=== PATIENT | male | born 1950 | race Caucasian/White ===

== ENCOUNTER 2018-06-13 11:20 | Outpatient (CLI) | payer MEDICARE, OTHER | END 2018-06-13 11:21 | disposition home or self-care (01) | LOC: LAB 11:20 | PROVIDERS: ATTEND Urology | DX: Z85.46 Personal history of malignant neoplasm of prostate (principal) | CPT/HCPCS: 36415; 84153 ==

== ENCOUNTER 2018-07-20 19:13 | Emergency (ER) | payer MEDICARE ==
[2018-07-20 19:34] LABS: BILIRUBIN,URINE NEGATIVE (NEGATIVE); GLUCOSE, URINE (UA) NEGATIVE (NEGATIVE); KETONES,URINE (UA) NEGATIVE (NEGATIVE); LEUKOCYTE ESTERASE, URINE NEGATIVE (NEGATIVE); NITRITE,URINE NEGATIVE (NEGATIVE); OCCULT BLOOD,URINE NEGATIVE (NEGATIVE); PROTEIN,URINE NEGATIVE (NEGATIVE); UROBILINOGEN,URINE 0.2 (NORMAL) E.U./dL (NORMAL)
[2018-07-20 19:42] LABS: CLARITY,URINE CLEAR (CLEAR)
[2018-07-20 20:00] LABS: EOSINOPHILS % (AUTO) 0.3 %; HGB - HEMOGLOBIN 16.1 g/dL (14.0-18.0); LYMPHOCYTES # (AUTO) 0.7 10^3/uL (1.5-3.5); LYMPHOCYTES % (AUTO) 15.2 %; MEAN CORPUSCULAR VOLUME 94.2 fL (80.0-94.0); MEAN PLATELET VOLUME 7.7 fL (7.4-11.4); MONOCYTES # (AUTO) 0.6 10^3/uL (0.0-1.0); MONOCYTES % (AUTO) 12.4 %; NEUTROPHILS # (AUTO) 3.4 10^3/uL (1.5-6.6); NEUTROPHILS % (AUTO) 71.1 %; PLT - PLATELET COUNT 152 10^3/uL (130-450); RED BLOOD COUNT 5.02 10^6/uL (4.70-6.10); RED CELL DISTRIBUTION WIDTH 13.8 % (12.0-15.0); WHITE BLOOD COUNT 4.8 x10^3/uL (4.8-10.8)
[2018-07-20 20:13] LABS: ALBUMIN 3.9 g/dL (3.2-5.5); ALBUMIN/GLOBULIN RATIO 1.4 (1.0-2.2); BILIRUBIN,TOTAL 0.7 mg/dL (0.2-1.0); CALCIUM 8.6 mg/dL (8.5-10.3); CREATININE 0.9 mg/dL (0.6-1.2); TOTAL PROTEIN 6.7 g/dL (6.7-8.2)
[2018-07-20] MEDS ORDERED: POTASSIUM BICARB 25 MEQ TABLET PO STA (20:20)
--- NOTE | 2018-07-20 20:23 | ED Physician Documentation ---
PD HPI BACK PAIN - Stated complaint Stated Complaint: POSS KIDNEY INF - Chief complaint Chief Complaint: Abd Pain - History obtained from History obtained from: Patient, Family - History of Present Illness Timing - onset: How many days ago (5) Timing - duration: Days (5) Timing - details: Gradual onset, Still present, Waxing and waning, Still present in ED Pain level max: 8 Pain level now: 4 Location: Lower, Left Quality: Pain, Spasm, Sharp Associated symptoms: No: Fever, Weakness, Numbness, Incontinent of urine, Unable to urinate, Hematuria, Incontinent of stool Improves with: Position, Meds Worsened by: Movement, Twisting Contributing factors: Other (took a ride on his horse with spurs) Similar symptoms before: Diagnosis (kidney stone) Recently seen: Not recently seen - Additional information Additional information: 68 y/o male with a 5 day history of left flank pain that is undulating but present daily has persistence of pain and is worried about a possible kidney stone or infection. He has not had fever or vomiting. He does take some aleve and he takes this without food. He has had some relief with the aleve. He reports that he did take a ride on his horse last week with spurs on and she gave him a good ride. He indicates this would be the loading injury if this is back pain. He does indicate position will help with the pain and activity has made the pain worse as well. Review of Systems Constitutional: reports: Chills, Myalgias. denies: Fever Eyes: denies: Decreased vision Ears: denies: Ear pain Nose: reports: Congestion. denies: Rhinorrhea / runny nose Throat: denies: Sore throat Cardiac: denies: Chest pain / pressure, Palpitations Respiratory: reports: Cough. denies: Dyspnea GI: reports: Abdominal Pain. denies: Nausea, Vomiting, Constipation, Diarrhea : denies: Dysuria, Frequency Skin: denies: Rash Musculoskeletal: reports: Back pain. denies: Neck pain, Extremity pain PD PAST MEDICAL HISTORY - Past Medical History Past Medical History: Yes Cardiovascular: Hypertension, High cholesterol Respiratory: None Endocrine/Autoimmune: None GI: Hemorrhoids : Benign prostate hypertrophy HEENT: Chronic vision loss Psych: None Musculoskeletal: Osteoarthritis, Gout, Chronic back pain Derm: None - Past Surgical History Past Surgical History: Yes General: Colonoscopy - Present Medications Home Medications: Ambulatory Orders Medication Instructions Recorded Confirmed Allopurinol [Zyloprim] 100 mg PO DAILY 12/18/13 12/18/13 Atorvastatin Calcium [Lipitor] 20 mg PO 12/18/13 12/18/13 Hydrochlorothiazide 25 mg PO 12/18/13 12/18/13 Metoprolol Succinate 25 mg PO 12/18/13 12/18/13 Cyclobenzaprine [Flexeril] 10 mg PO TID PRN #20 tablet 07/20/18 Hydrocodone/Acetaminophen 1 - 2 each PO Q6H PRN #14 tablet 07/20/18 [Hydrocodon-Acetaminophen 5-325] - Allergies Allergies/Adverse Reactions: Allergies Allergy/AdvReac Type Severity Reaction Status Date / Time No Known Drug Allergies Allergy Verified 07/20/18 19:27 - Social History Does the pt smoke?: No Smoking Status: Former smoker Does the pt drink ETOH?: Yes Does the pt have substance abuse?: No PD ED PE NORMAL - Vitals Vital signs reviewed: Yes (hypertensive ) - General General: Alert and oriented X 3, No acute distress, Well developed/nourished - HEENT HEENT: Atraumatic, PERRL, EOMI - Neck Neck: Supple, no meningeal sign, No bony TTP - Cardiac Cardiac: RRR, No murmur - Respiratory Respiratory: No respiratory distress, Clear bilaterally - Abdomen Abdomen: Normal bowel sounds, Soft, Non tender, Non distended, No organomegaly - Back Back: No CVA TTP, No spinal TTP, Other (There is mild tenderness to the muscles to the left lower paraspinous area. ) - Derm Derm: Normal color, Warm and dry, No rash - Extremities Extremities: No deformity, No edema - Neuro Neuro: Alert and oriented X 3, senior games technician 2-12 intact, No motor deficit, No sensory deficit, Normal speech Eye Opening: Spontaneous Motor: Obeys Commands Verbal: Oriented GCS Score: 15 - Psych Psych: Normal mood, Normal affect Results - Vitals Vitals: Vital Signs - 24 hr 07/20/18 07/20/18 19:23 21:40 Temperature 37.3 C Heart Rate 74 73 Respiratory 16 18 Rate Blood Pressure 151/74 H 132/73 H O2 Saturation 95 93 Oxygen O2 Source Room air - Labs Labs: Laboratory Tests 12/02/18 12/02/18 12/02/18 19:25 19:48 19:48 WBC 4.8 RBC 5.02 Hgb 16.1 Hct 47.3 MCV 94.2 H MCH 32.0 H MCHC 34.0 RDW 13.8 Plt Count 152 MPV 7.7 Neut # (Auto) 3.4 Lymph # (Auto) 0.7 L [place] # (Auto) 0.6 Eos # (Auto) 0.0 Baso # (Auto) 0.0 Absolute Nucleated RBC 0.00 Nucleated RBC % 0.1 Sodium 132 L Potassium 2.9 L Chloride 101 Carbon Dioxide 25 Anion Gap 6.0 BUN 19 Creatinine 0.9 Estimated GFR (MDRD) 83 L Glucose 215 H Glycated Hemoglobin Estim Average Glucose Calcium 8.6 Total Bilirubin 0.7 AST 31 ALT 34 Alkaline Phosphatase 53 Total Protein 6.7 Albumin 3.9 Globulin 2.8 Albumin/Globulin Ratio 1.4 Lipase 37 Urine Color YELLOW Urine Clarity CLEAR Urine pH 6.0 Ur Specific [place] 1.025 Urine Protein NEGATIVE Urine Glucose (UA) NEGATIVE Urine Ketones NEGATIVE Urine Occult Blood NEGATIVE Urine Nitrite NEGATIVE Urine Bilirubin NEGATIVE Urine Urobilinogen 0.2 (NORMAL) Ur Leukocyte Esterase NEGATIVE Ur Microscopic Review NOT INDICATED Urine Culture Comments NOT INDICATED 07/20/18 19:48 WBC RBC Hgb Hct MCV MCH MCHC RDW Plt Count MPV Neut # (Auto) Lymph # (Auto) [place] # (Auto) Eos # (Auto) Baso # (Auto) Absolute Nucleated RBC Nucleated RBC % Sodium Potassium Chloride Carbon Dioxide Anion Gap BUN Creatinine Estimated GFR (MDRD) Glucose Glycated Hemoglobin 6.4 H Estim Average Glucose 137 H Calcium Total Bilirubin AST ALT Alkaline Phosphatase Total Protein Albumin Globulin Albumin/Globulin Ratio Lipase Urine Color Urine Clarity Urine pH Ur Specific [place] Urine Protein Urine Glucose (UA) Urine Ketones Urine Occult Blood Urine Nitrite Urine Bilirubin Urine Urobilinogen Ur Leukocyte Esterase Ur Microscopic Review Urine Culture Comments - Rads (name of study) CT abd/pel without Radiology: Prelim report reviewed (Impression: No urinary tract stones or obstruction. 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 - IVC sono (time) 2200 Bedside IVC sono: IVC measures (cm) (0.83), IVC collapsed c insp (cm) (complete), Dehydration (est 2 liter deficit) PD MEDICAL DECISION MAKING - ED course Complexity details: reviewed old records, reviewed results, re-evaluated patient, considered differential, d/w patient, d/w family ED course: 68 y/o male with left flank pain without much tenderness is concerning for possible stone and a CT of the abdomen and pelvis is undertaken to rule this out. There is no blood in the urine and no stone on the CT. 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 The findings on the CT are subtle and I do not believe it has anything to do with todays visit. He is found to be dehydrated on interrogation of the IVC and his blood glucose is elevated to 215. This combined with his wild horse ride are suspected to be the culprit of his back pain. He is hydrated, given decadron and we will provide a short course of pain medication and muscle relaxant. He has not been diagnosed with diabetes and he will need follow up with Dr. Weber and we will provide some initial instructions. 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
[2018-07-20] MEDS ORDERED: DEXAMETHASONE 10 MG/ML VIAL IVP STA (21:27)
--- NOTE | 2018-07-20 21:29 | CT Report ---
Reason: left flank pain Procedure Date: 07/20/2018 Accession Number: [id number] / [id number] Procedure: CT - Abdomen/Pelvis W/O CPT Code: FULL RESULT: EXAM: CT ABDOMEN AND PELVIS (CT KUB) EXAM DATE: 07/20/2018 08:45 PM. CLINICAL HISTORY: Left flank pain. COMPARISONS: None. TECHNIQUE: Routine axial helical CT imaging was performed through the abdomen and pelvis without IV contrast. Reconstructions: Coronal and sagittal. In accordance with CT protocol optimization, one or more of the following dose reduction techniques were utilized for this exam: automated exposure control, adjustment of mA and/or KV based on patient size, or use of iterative reconstructive technique. FINDINGS: Limited exam without intravenous contrast, particularly of solid abdominal organs and vascular structures. Lung Bases: Unremarkable. Right Kidney/Ureter: No stones, hydronephrosis, or hydroureter. No perinephric fat stranding. Left Kidney/Ureter: No stones, hydronephrosis, or hydroureter. No perinephric fat stranding. Small exophytic cyst measures 1.7 cm. Other Solid Organs: Calcified liver and splenic granulomas. Noncontrast images of the solid organs are grossly unremarkable. Gallbladder/Bile Ducts: Unremarkable. Peritoneal Cavity: No free fluid, free air or isidro adenopathy. No bowel obstruction. Sigmoid diverticulosis without acute inflammatory changes. Mild hazy attenuation is present in the central mesentery. Pelvic Organs: No bladder stones or wall thickening. There are radiation seeds in the prostate gland. Vasculature: Mild atherosclerosis. Other: There are L5 pars interarticularis defects with grade 1 anterolisthesis of L5 on S1. IMPRESSION: No urinary tract stones or obstruction. Diverticulosis without evidence of acute diverticulitis. 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 RADIA
[2018-07-20] MEDS ORDERED: SODIUM CHLORIDE 0.9% 1,000 ML IV ONE (22:01)
[2018-07-20 22:03] LABS: HB2 TOTAL 17.6 g/dL; HEMOGLOBIN A1C 0.81 g/dL; HEMOGLOBIN A1C % 6.4 % (4.6-6.2)
[2018-07-20] MEDS ORDERED: HYDROcod/ACET 5/325 Prepack 4 PO STA (22:39)
[2018-07-20] MEDS ORDERED: CYCLOBENZAPRINE 10 MG Prepack 2 PO PRN (22:39)
[2018-07-20 23:03] VITALS: BP 130/74
== END 2018-07-20 23:03 | disposition home or self-care (01) ==
LOC: ED 19:13
DX: E86.0 Dehydration (principal); E87.6 Hypokalemia; M62.830 Muscle spasm of back; E11.8 Type 2 diabetes mellitus with unspecified complications; I10 Essential (primary) hypertension; Z87.891 Personal history of nicotine dependence
CPT/HCPCS: 36415; 74176; 80053; 81003; 83036; 83690; 85025; 96361; 96374; 99283; 99284; A9270; 81001; 87086

== ENCOUNTER 2018-11-18 11:26 | Outpatient (CLI) | payer MEDICARE ==
--- NOTE | 2018-11-18 15:44 | XRAY Report ---
Reason: PAIN IN LEFT KNEE Procedure Date: 11/18/2018 Accession Number: [id number] / [id number] Procedure: XR - Knee 3 View LT CPT Code: FULL RESULT: EXAM: LEFT KNEE RADIOGRAPHY EXAM DATE: 11/18/2018 11:49 AM. CLINICAL HISTORY: Pain in left knee. COMPARISON: None. TECHNIQUE: 3 views. FINDINGS: Bones: No acute fracture or bone lesion. Joints: Narrowing medial compartment joint space. Mild degenerative spurring of the tibial spines. Mild degenerative spurring superior and inferior pole of the patella. Small suprapatellar effusion. Soft Tissues: Normal. No soft tissue swelling. IMPRESSION: Degenerative osteoarthritis greatest of the medial and patellofemoral compartments. Small effusion. No fracture. RADIA
== END 2018-11-18 11:27 | disposition home or self-care (01) ==
LOC: DI 11:26
PROVIDERS: ATTEND Specialist
DX: M17.12 Unilateral primary osteoarthritis, left knee (principal)

== ENCOUNTER 2019-01-16 12:16 | Outpatient (CLI) | payer MEDICARE ==
--- NOTE | 2019-01-17 21:01 | MRI Report ---
Reason: PAIN IN L KNEE Procedure Date: 01/16/2019 Accession Number: [id number] / [id number] Procedure: MRI - Knee LT W/O CPT Code: FULL RESULT: EXAM: LEFT KNEE MRI WITHOUT CONTRAST EXAM DATE: 01/16/2019 01:04 PM. CLINICAL HISTORY: Pain in left knee. COMPARISON: Left knee 3 views 11/18/2018. TECHNIQUE: Multiplanar, multisequence T1-weighted and fluid-sensitive sequences of the knee without contrast. Other: None. FINDINGS: Bones: Moderate spurring anterior aspect lateral tibial plateau. Moderate spurring femoral condyles and medial tibial plateau. Moderate spurring posterior aspect of medial lateral femoral condyles. Medial tibial plateau and medial femoral condyle bony remodeling with sclerosis. Subcortical degenerative cyst 9 mm posterior aspect and lateral proximal tibia at the proximal tibiofibular articulation. Extensive intra-articular ganglion cyst or degenerative cyst of fibular head 2.9 cm x 2.9 cm with reactive marrow edema and severe arthrosis proximal tibiofibular articulation. Articular Cartilage: Severe chondromalacia medial tibiofemoral compartment. Mild chondromalacia lateral patellar facet. Moderate chondromalacia trochlear groove. Medial Meniscus: Diffuse complex tear medial meniscus. Lateral Meniscus: The lateral meniscus is intact. Cruciate Ligaments: Near complete tear proximal anterior cruciate ligament. Posterior cruciate ligament tear. Collateral Ligaments: The medial collateral and lateral collateral ligamentous structures are intact. Tendons: Fibrosing tenosynovitis distal semimembranosus tendon. Multiloculated fluid collection tendon sheath distal semimembranosus tendon 3.9 cm in height and 1.2 cm in transverse dimension. Musculature: Mild edema proximal medial gastrocnemius muscle. Other: Small quantity of fluid patellar recesses. No popliteal cyst. No loose bodies. The medial and lateral retinacula are intact. The subcutaneous tissues and fat pads are unremarkable. IMPRESSION: 1. Near complete partial tear proximal anterior cruciate ligament. 2. Posterior cruciate ligament tear. 3. Complex tear medial meniscus. 4. Severe osteoarthritis medial tibiofemoral compartment. Kellgren- Shadi grade 4. RADIA
== END 2019-01-16 12:17 | disposition home or self-care (01) ==
LOC: DI 12:16
PROVIDERS: ATTEND Specialist
DX: M17.12 Unilateral primary osteoarthritis, left knee (principal); S83.242A Other tear of medial meniscus, current injury, left knee, initial encounter; S83.512A Sprain of anterior cruciate ligament of left knee, initial encounter; S83.522A Sprain of posterior cruciate ligament of left knee, initial encounter

== ENCOUNTER 2019-07-14 08:09 | Outpatient (CLI) | payer MEDICARE ==
--- NOTE | 2019-07-15 07:52 | XRAY Report ---
Reason: LT SHOULDER PAIN Procedure Date: 07/14/2019 Accession Number: [id number] / [id number] Procedure: XR - Shoulder 3 View LT CPT Code: Final Report FULL RESULT: EXAM: LEFT SHOULDER RADIOGRAPHY EXAM DATE: 07/14/2019 08:39 AM. CLINICAL HISTORY: Left shoulder pain. COMPARISON: None. TECHNIQUE: 3 views. FINDINGS: Bones: Normal. No fracture or bone lesion. Joints: Borderline widening at the AC articulation space at 1.3 cm, with normal alignment. The glenohumeral articulation and coracoclavicular space appear within normal limits. No subluxation. Soft tissues: The visualized hemithorax is unremarkable. No soft tissue swelling. IMPRESSION: Borderline widening of the AC articulation space. A type I AC separation is not totally excludable. Normal alignment at this articulation. Examination elsewhere unremarkable. RADIA
== END 2019-07-14 08:10 | disposition home or self-care (01) ==
LOC: DI 08:09
PROVIDERS: ATTEND Physician Assistant Medical
DX: M25.512 Pain in left shoulder (principal)

== ENCOUNTER 2020-05-05 08:03 | Outpatient (CLI) | payer MEDICARE ==
[2020-05-05 08:35] LABS: BASOPHILS # (AUTO) 0.1 10^3/uL (0.0-0.1); BASOPHILS % (AUTO) 1.1 %; EOSINOPHILS # (AUTO) 0.4 10^3/uL (0.0-0.7); EOSINOPHILS % (AUTO) 5.8 %; HGB - HEMOGLOBIN 16.7 g/dL (14.0-18.0); LYMPHOCYTES # (AUTO) 1.9 10^3/uL (1.5-3.5); LYMPHOCYTES % (AUTO) 29.2 %; MEAN CORPUSCULAR HEMOGLOBIN 33.7 pg (27.0-31.0); MEAN CORPUSCULAR HGB CONC 35.5 g/dL (32.0-36.0); MEAN CORPUSCULAR VOLUME 94.9 fL (80.0-94.0); MEAN PLATELET VOLUME 9.5 fL (7.4-11.4); MONOCYTES # (AUTO) 0.6 10^3/uL (0.0-1.0); MONOCYTES % (AUTO) 9.8 %; NEUTROPHILS # (AUTO) 3.5 10^3/uL (1.5-6.6); NEUTROPHILS % (AUTO) 53.8 %; PLT - PLATELET COUNT 211 10^3/uL (130-450); RED BLOOD COUNT 4.95 10^6/uL (4.70-6.10); RED CELL DISTRIBUTION WIDTH 13.3 % (12.0-15.0); WHITE BLOOD COUNT 6.5 x10^3/uL (4.8-10.8)
[2020-05-05 08:47] LABS: ALBUMIN 4.1 g/dL (3.2-5.5); ALBUMIN/GLOBULIN RATIO 1.4 (1.0-2.2); ALKALINE PHOSPHATASE 55 IU/L (42-121); ALT ALANINE AMINOTRANSFERASE 40 IU/L (10-60); AST ASPARTATE AMINOTRANSFERASE 31 IU/L (10-42); BILIRUBIN,TOTAL 1.1 mg/dL (0.2-1.0); BUN - BLOOD UREA NITROGEN 26 mg/dL (6-20); CALCIUM 9.3 mg/dL (8.5-10.3); CARBON DIOXIDE - CO2 24 mmol/L (21-32); CHLORIDE 105 mmol/L (101-111); CHOL/HDL RATIO 3.7 (<5.0); CHOLESTEROL 161 mg/dL; CREATININE 0.9 mg/dL (0.6-1.2); GLUCOSE 152 mg/dL (70-100); HDL CHOLESTEROL 44 mg/dL; LDL CHOLESTEROL,CALCULATED 97 mg/dL; LDL/HDL RATIO 2.2 (<3.6); SODIUM 139 mmol/L (135-145); URIC ACID 6.7 mg/dL (2.6-7.2); VLDL CHOLESTEROL 20 mg/dL
[2020-05-06 12:40] LABS: HEMOGLOBIN A1c% 6.7 % (4.27-6.07)
== END 2020-05-05 08:04 | disposition home or self-care (01) ==
LOC: LAB 08:03
PROVIDERS: ATTEND Nurse Practitioner
DX: R73.01 Impaired fasting glucose (principal); C61 Malignant neoplasm of prostate; I25.10 Atherosclerotic heart disease of native coronary artery without angina pectoris; Z87.442 Personal history of urinary calculi; Z79.899 Other long term (current) drug therapy
CPT/HCPCS: 36415; 80053; 80061; 83036; 83721; 84153; 84443; 84550; 85025

== ENCOUNTER 2020-06-03 20:08 | Outpatient (CLI) | payer MEDICARE | END 2020-06-03 20:09 | disposition home or self-care (01) | LOC: COV 20:08 | PROVIDERS: ATTEND Family Medicine | DX: R06.02 Shortness of breath (principal); M79.10 Myalgia, unspecified site; R53.83 Other fatigue; R43.9 Unspecified disturbances of smell and taste; Z20.828 Contact with and (suspected) exposure to other viral communicable diseases ==

== ENCOUNTER 2021-01-04 15:44 | Outpatient (CLI) | payer MEDICARE ==
--- NOTE | 2021-01-04 16:22 | XRAY Report ---
PROCEDURE: Knee 3 View RT INDICATIONS: PAIN IN RT KNEE TECHNIQUE: 4 views of the right knee(s) were acquired. COMPARISON: None. FINDINGS: Bones: No fractures or dislocations. Mild to moderate tricompartmental osteoarthritis is seen more p rominent in medial femoral tibial compartment. No suspicious bony lesions. Soft tissues: Moderate suprapatellar joint effusion is noted. No suspicious soft tissue calcificatio ns. IMPRESSION: Mild to moderate tricompartmental osteoarthritis and moderate suprapatellar joint effusi on. No fracture or dislocation. Reviewed by: Omar Palmer MD on 01/04/2021 4:21 PM PDT Approved by: Omar Palmer MD on 01/04/2021 4:21 PM PDT Station ID: [id number]
== END 2021-01-04 15:45 | disposition home or self-care (01) ==
LOC: DI 15:44
PROVIDERS: ATTEND Nurse Practitioner Family
DX: M17.11 Unilateral primary osteoarthritis, right knee (principal); M25.461 Effusion, right knee

== ENCOUNTER 2021-07-25 09:29 | Outpatient (CLI) | payer MEDICARE ==
[2021-07-25 10:11] LABS: BASOPHILS # (AUTO) 0.1 10^3/uL (0.0-0.1); BASOPHILS % (AUTO) 1.1 %; EOSINOPHILS # (AUTO) 0.3 10^3/uL (0.0-0.7); HCT - HEMATOCRIT 48.8 % (42.0-52.0); HGB - HEMOGLOBIN 16.8 g/dL (14.0-18.0); LYMPHOCYTES % (AUTO) 31.7 %; MEAN CORPUSCULAR HEMOGLOBIN 31.9 pg (27.0-31.0); MEAN CORPUSCULAR HGB CONC 34.4 g/dL (32.0-36.0); MEAN CORPUSCULAR VOLUME 92.8 fL (80.0-94.0); MEAN PLATELET VOLUME 9.8 fL (7.4-11.4); MONOCYTES # (AUTO) 0.6 10^3/uL (0.0-1.0); MONOCYTES % (AUTO) 9.5 %; NEUTROPHILS # (AUTO) 3.3 10^3/uL (1.5-6.6); NEUTROPHILS % (AUTO) 52.5 %; PLT - PLATELET COUNT 226 10^3/uL (130-450); RED BLOOD COUNT 5.26 10^6/uL (4.70-6.10); RED CELL DISTRIBUTION WIDTH 13.2 % (12.0-15.0); WHITE BLOOD COUNT 6.2 x10^3/uL (4.8-10.8)
[2021-07-25 10:13] LABS: BILIRUBIN,URINE NEGATIVE (NEGATIVE); GLUCOSE, URINE (UA) NEGATIVE (NEGATIVE); KETONES,URINE (UA) NEGATIVE (NEGATIVE); LEUKOCYTE ESTERASE, URINE NEGATIVE (NEGATIVE); NITRITE,URINE NEGATIVE (NEGATIVE); OCCULT BLOOD,URINE NEGATIVE (NEGATIVE); PROTEIN,URINE NEGATIVE (NEGATIVE); UROBILINOGEN,URINE 0.2 (NORMAL) E.U./dL (NORMAL)
[2021-07-25 10:22] LABS: CALCIUM 9.5 mg/dL (8.5-10.3); CREATININE 0.9 mg/dL (0.6-1.2); POTASSIUM 4.1 mmol/L (3.5-5.0)
[2021-07-25 10:40] LABS: CLARITY,URINE CLEAR (CLEAR); RBC,URINE None Seen /HPF (0-5); SQUAMOUS EPITHELIAL CELL,UR RARE Squamous (<= Few); WBC CLUMPS,URINE NONE SEEN; WBC,URINE 0-3 /HPF (0-3)
[2021-07-25 10:41] LABS: BACTERIA,URINE None Seen /HPF (None Seen); EPITHELIAL CELLS,UR None Seen /HPF (<= Few)
[2021-07-25 13:25] LABS: ESTIMATED AVERAGE GLUCOSE 154 mg/dL (70-100)
== END 2021-07-25 09:30 | disposition home or self-care (01) ==
LOC: DI 09:29
PROVIDERS: ATTEND Orthopaedic Surgery
DX: Z01.818 Encounter for other preprocedural examination (principal); R73.9 Hyperglycemia, unspecified; N39.0 Urinary tract infection, site not specified
CPT/HCPCS: 36415; 80048; 81001; 83036; 85025; 87086; 93005

== ENCOUNTER 2022-04-27 07:54 | Outpatient (CLI) | payer MEDICARE ==
[2022-04-27 08:23] LABS: BASOPHILS # (AUTO) 0.1 10^3/uL (0.0-0.1); BASOPHILS % (AUTO) 0.8 %; EOSINOPHILS # (AUTO) 0.4 10^3/uL (0.0-0.7); EOSINOPHILS % (AUTO) 6.8 %; HCT - HEMATOCRIT 46.4 % (42.0-52.0); LYMPHOCYTES # (AUTO) 1.9 10^3/uL (1.5-3.5); LYMPHOCYTES % (AUTO) 30.5 %; MEAN CORPUSCULAR HEMOGLOBIN 32.6 pg (27.0-31.0); MEAN CORPUSCULAR HGB CONC 34.5 g/dL (32.0-36.0); MEAN CORPUSCULAR VOLUME 94.5 fL (80.0-94.0); MEAN PLATELET VOLUME 9.6 fL (7.4-11.4); MONOCYTES # (AUTO) 0.5 10^3/uL (0.0-1.0); MONOCYTES % (AUTO) 8.5 %; NEUTROPHILS # (AUTO) 3.3 10^3/uL (1.5-6.6); NEUTROPHILS % (AUTO) 53.1 %; PLT - PLATELET COUNT 192 10^3/uL (130-450); RED BLOOD COUNT 4.91 10^6/uL (4.70-6.10); RED CELL DISTRIBUTION WIDTH 13.2 % (12.0-15.0); WHITE BLOOD COUNT 6.1 x10^3/uL (4.8-10.8)
[2022-04-27 08:34] LABS: CALCIUM 9.5 mg/dL (8.5-10.3); CREATININE 0.7 mg/dL (0.6-1.2); POTASSIUM 3.8 mmol/L (3.5-5.0)
[2022-04-27 09:04] LABS: BILIRUBIN,URINE NEGATIVE (NEGATIVE); GLUCOSE, URINE (UA) NEGATIVE (NEGATIVE); KETONES,URINE (UA) NEGATIVE (NEGATIVE); LEUKOCYTE ESTERASE, URINE NEGATIVE (NEGATIVE); NITRITE,URINE NEGATIVE (NEGATIVE); OCCULT BLOOD,URINE NEGATIVE (NEGATIVE); PROTEIN,URINE NEGATIVE (NEGATIVE); UROBILINOGEN,URINE 0.2 (NORMAL) E.U./dL (NORMAL)
[2022-04-27 09:06] LABS: CLARITY,URINE CLEAR (CLEAR)
[2022-04-27 09:33] LABS: BACTERIA,URINE Rare /HPF (None Seen); RBC,URINE 0-5 /HPF (0-5); SQUAMOUS EPITHELIAL CELL,UR RARE Squamous (<= Few); WBC,URINE 0-3 /HPF (0-3)
[2022-04-27 12:37] LABS: ESTIMATED AVERAGE GLUCOSE 154 mg/dL (70-100)
== END 2022-04-27 07:55 | disposition home or self-care (01) ==
LOC: RT 07:54
PROVIDERS: ATTEND Orthopaedic Surgery
DX: Z01.818 Encounter for other preprocedural examination (principal); R73.9 Hyperglycemia, unspecified; N39.0 Urinary tract infection, site not specified
CPT/HCPCS: 36415; 80048; 81001; 83036; 85025; 87086; 93005

== ENCOUNTER 2022-06-18 10:18 | Outpatient (CLI) | payer MEDICARE ==
--- NOTE | 2022-06-18 11:21 | XRAY Report ---
PROCEDURE: Shoulder 3 View LT INDICATIONS: LEFT SHOULDER PAIN TECHNIQUE: 3 views of the shoulder were acquired. COMPARISON: 07/14/2019 FINDINGS: Bones: Similar mild widening of the AC interval. Otherwise, no dislocation or acute fracture identifi ed. There might be calcific bursitis. Mild glenohumeral degenerative changes. Soft tissues: No suspicious calcifications otherwise. IMPRESSION: No acute radiographic abnormality. Similar mild widening of the AC interval and glenohumeral arthrosi s. If there is high concern for further derangement, consider MRI evaluation. Reviewed by: John Dickerson MD on 06/18/2022 11:20 AM PDT Approved by: John Dickerson MD on 06/18/2022 11:20 AM PDT Station ID: [id number]
== END 2022-06-18 10:19 | disposition home or self-care (01) ==
LOC: DI 10:18
PROVIDERS: ATTEND Nurse Practitioner Family
DX: M19.012 Primary osteoarthritis, left shoulder (principal)

== ENCOUNTER 2022-09-03 09:18 | Outpatient (CLI) | payer MEDICARE ==
[2022-09-03 09:33] LABS: BASOPHILS # (AUTO) 0.1 10^3/uL (0.0-0.1); BASOPHILS % (AUTO) 0.7 %; EOSINOPHILS # (AUTO) 0.4 10^3/uL (0.0-0.7); EOSINOPHILS % (AUTO) 5.7 %; HCT - HEMATOCRIT 43.9 % (42.0-52.0); HGB - HEMOGLOBIN 14.9 g/dL (14.0-18.0); LYMPHOCYTES # (AUTO) 2.2 10^3/uL (1.5-3.5); LYMPHOCYTES % (AUTO) 30.4 %; MEAN CORPUSCULAR HEMOGLOBIN 31.6 pg (27.0-31.0); MEAN CORPUSCULAR HGB CONC 33.9 g/dL (32.0-36.0); MEAN PLATELET VOLUME 9.2 fL (7.4-11.4); MONOCYTES # (AUTO) 0.6 10^3/uL (0.0-1.0); MONOCYTES % (AUTO) 8.5 %; NEUTROPHILS # (AUTO) 3.9 10^3/uL (1.5-6.6); NEUTROPHILS % (AUTO) 54.4 %; PLT - PLATELET COUNT 189 10^3/uL (130-450); RED BLOOD COUNT 4.72 10^6/uL (4.70-6.10); RED CELL DISTRIBUTION WIDTH 13.2 % (12.0-15.0); WHITE BLOOD COUNT 7.2 x10^3/uL (4.8-10.8)
[2022-09-03 10:14] LABS: ALBUMIN 4.1 g/dL (3.2-5.5); ALBUMIN/GLOBULIN RATIO 1.4 (1.0-2.2); ALKALINE PHOSPHATASE 59 IU/L (42-121); ALT ALANINE AMINOTRANSFERASE 25 IU/L (10-60); AST ASPARTATE AMINOTRANSFERASE 19 IU/L (10-42); BUN - BLOOD UREA NITROGEN 24 mg/dL (6-20); CARBON DIOXIDE - CO2 26 mmol/L (21-32); CHLORIDE 101 mmol/L (101-111); CHOL/HDL RATIO 3.3 (<5.0); CHOLESTEROL 155 mg/dL; CREATININE 0.9 mg/dL (0.6-1.2); GFR - MDRD 82 (>89); GLUCOSE 150 mg/dL (70-100); HDL CHOLESTEROL 47 mg/dL; LDL CHOLESTEROL,CALCULATED 83 mg/dL; LDL/HDL RATIO 1.8 (<3.6); POTASSIUM 3.8 mmol/L (3.5-5.0); SODIUM 136 mmol/L (135-145); TRIGLYCERIDES 126 mg/dL; URIC ACID 5.7 mg/dL (2.6-7.2); VLDL CHOLESTEROL 25 mg/dL
[2022-09-03 10:37] LABS: PSA FREE < 0.005 ng/mL (0.16-2.81); PSA TOTAL < 0.008 ng/mL (0.000-2.000)
[2022-09-03 11:12] LABS: THYROID STIMULATING HORMONE 2.57 uIU/mL (0.34-5.60)
== END 2022-09-03 09:19 | disposition home or self-care (01) ==
LOC: LAB 09:18
PROVIDERS: ATTEND Nurse Practitioner Family
DX: I10 Essential (primary) hypertension (principal); E78.5 Hyperlipidemia, unspecified; M10.9 Gout, unspecified; D49.59 Neoplasm of unspecified behavior of other genitourinary organ
CPT/HCPCS: 36415; 80053; 80061; 83721; 84153; 84154; 84443; 84550; 85025

== ENCOUNTER 2022-11-09 19:11 | Emergency (ER) | payer MEDICARE ==
[2022-11-09] MEDS ORDERED: SODIUM CHLORIDE 0.9% 1,000 ML IV STA (20:38)
--- NOTE | 2022-11-09 20:41 | ED Physician Documentation ---
History of Present Illness - Stated complaint Stated Complaint: KOENIG/NAUSEA/DIABETIC - Chief complaint Chief Complaint: Neuro - History obtained from History obtained from: Patient - History of Present Illness Timing: How many days ago (3) - Additonal information Additional information: 72-year-old male with a history of diabetes has been on vacation and 5 days ago he stopped taking his metformin. He began to feel ill about 3 days ago with headache, lassitude, diarrhea and abdominal upset. He took his metformin last night and feels that he might be getting somewhat better today. He has a persistence of some nausea and he has had diarrhea but he claims he is urinating normally. The patient relates that he has been on a road trip back home from [place] and he states that the trip was arduous with cold and snow and rain. The patient drove with his and had a horse trailer. He has not been able to sleep for 3 days. His was became concerned when he mostly stared forward and did not speak. The patient indicates that he feels exhausted and chilled inside. Review of Systems Constitutional: reports: Chills, Sweats. denies: Fever Ears: denies: Ear pain Nose: denies: Congestion Throat: denies: Sore throat Cardiac: denies: Chest pain / pressure, Palpitations Respiratory: denies: Dyspnea, Cough GI: reports: Diarrhea. denies: Abdominal Pain, Nausea, Vomiting : denies: Dysuria, Frequency Skin: denies: Rash Musculoskeletal: reports: Neck pain. denies: Back pain, Extremity pain Neurologic: reports: Headache. denies: Generalized weakness, Focal weakness, Numbness, Head injury, LOC PD PAST MEDICAL HISTORY - Past Medical History Cardiovascular: Hypertension, High cholesterol Respiratory: None Endocrine/Autoimmune: None GI: Hemorrhoids : Benign prostate hypertrophy HEENT: Chronic vision loss Psych: None Musculoskeletal: Osteoarthritis, Gout, Chronic back pain Derm: None - Past Surgical History Past Surgical History: Yes General: Colonoscopy - Present Medications Home Medications: Ambulatory Orders Medication Instructions Recorded Confirmed Atorvastatin Calcium [Lipitor] 20 mg PO 12/18/13 12/18/13 Metoprolol Succinate 25 mg PO 12/18/13 12/18/13 allopurinoL [Zyloprim] 100 mg PO DAILY 12/18/13 12/18/13 hydroCHLOROthiazide 25 mg PO 12/18/13 12/18/13 [Hydrochlorothiazide] Cyclobenzaprine [Flexeril] 10 mg PO TID PRN #20 tablet 07/20/18 Hydrocodone/Acetaminophen 1 - 2 each PO Q6H PRN #14 tablet 07/20/18 [Hydrocodon-Acetaminophen 5-325] - Allergies Allergies/Adverse Reactions: Allergies Allergy/AdvReac Type Severity Reaction Status Date / Time No Known Drug Allergies Allergy Verified 11/09/22 19:41 - Social History Does the pt smoke?: No Smoking Status: Former smoker Does the pt drink ETOH?: Yes Does the pt have substance abuse?: No PD ED PE NORMAL - Vitals Vital signs reviewed: Yes (tachy and hypertensive ) - General General: Alert and oriented X 3, No acute distress, Well developed/nourished - HEENT HEENT: Atraumatic, PERRL, EOMI - Neck Neck: Supple, no meningeal sign, No bony TTP - Cardiac Cardiac: No murmur, Other (tachy to 100) - Respiratory Respiratory: No respiratory distress, Clear bilaterally - Abdomen Abdomen: Normal bowel sounds, Soft, Non tender, Non distended, No organomegaly - Back Back: No CVA TTP, No spinal TTP - Derm Derm: Normal color, Warm and dry, No rash - Extremities Extremities: No deformity, No edema - Neuro Neuro: Alert and oriented X 3, languages and literature instructor 2-12 intact, No motor deficit, No sensory deficit, Normal speech Eye Opening: Spontaneous Motor: Obeys Commands Verbal: Oriented GCS Score: 15 - Psych Psych: Normal mood, Normal affect Results - Vitals Vitals: Vital Signs - 24 hr 11/09/22 11/09/22 19:37 22:41 Temperature 37.6 C 37.8 C Heart Rate 104 H 81 Respiratory 16 17 Rate Blood Pressure 151/80 H 148/78 H O2 Saturation 95 96 Oxygen O2 Source Room air - Labs Labs: Laboratory Tests 11/09/22 11/09/22 11/09/22 19:36 21:13 21:13 WBC 8.2 RBC 4.76 Hgb 15.0 Hct 44.4 MCV 93.3 MCH 31.5 H MCHC 33.8 RDW 13.1 Plt Count 181 MPV 9.1 Neut # (Auto) 6.9 H Lymph # (Auto) 0.6 L [place] # (Auto) 0.6 Eos # (Auto) 0.1 Baso # (Auto) 0.0 Absolute Nucleated RBC 0.00 Nucleated RBC % 0.0 Sodium 137 Potassium 3.9 Chloride 106 Carbon Dioxide 22 Anion Gap 9.0 BUN 19 Creatinine 0.9 Estimated GFR (MDRD) 82 L Glucose 130 H POC Whole Bld Glucose 140 H Calcium 8.7 Total Bilirubin 0.6 AST 33 ALT 27 Alkaline Phosphatase 50 Total Protein 6.7 Albumin 3.9 Globulin 2.8 Albumin/Globulin Ratio 1.4 Lipase 36 Procedures - IVC sono (time) 2035 Bedside IVC sono: IVC measures (cm) (1.49), Euvolemia PD Medical Decision Making - ED course Complexity details: reviewed old records, reviewed results, re-evaluated patient, considered differential, d/w patient, d/w family Reviewed Lab Results: We reviewed a complete blood count within normal white blood cell count hemoglobin and hematocrit as well as chemistries with normal electrolytes kidney and liver function. We obtain these blood tests as screening for metabolic abnormality and occult infection. These were not found. ED course: 72-year-old Wilman Dial has returned from a 5-day road trip from [place] and he describes the trip as heroine and exhausting. There were a lot of issues with the weather including snow and flooding. It was cold. When he presented to the emergency department my primary concern was for significant dehydration. Patient has a prior incident of significant dehydration related to diabetes. We did not find this on interrogation of the inferior vena cava with POCUS. Despite this we did hydrate the patient. We did do screening blood work and found no abnormalities. I suspect exhaustion and expect complete recovery without specific treatment. Departure - Departure Disposition: 01 Home, Self Care Clinical Impression: Exhaustion due to cold Qualifiers: Encounter type: initial encounter Qualified Code(s): T69.8XXA - Other specified effects of reduced temperature, initial encounter Condition: Stable Instructions: ED Cephalgia Unspecified Follow-Up: Coty Simmons ARNP [Primary Care Provider] - Comments: Wilman, today it looks like your road trip likely was a bit more than an easy trip. Exhaustion may take 2 to 3 days to fully recover. My recommendation is to sleep well and expect resolution of your symptoms. Today we tested your blood counts electrolytes kidney and liver function and I am happy to report all test we did were normal. Discharge Date/Time: 11/09/22 22:42
[2022-11-09 21:19] LABS: BASOPHILS % (AUTO) 0.1 %; EOSINOPHILS # (AUTO) 0.1 10^3/uL (0.0-0.7); EOSINOPHILS % (AUTO) 1.6 %; HCT - HEMATOCRIT 44.4 % (42.0-52.0); LYMPHOCYTES # (AUTO) 0.6 10^3/uL (1.5-3.5); LYMPHOCYTES % (AUTO) 6.8 %; MEAN CORPUSCULAR HEMOGLOBIN 31.5 pg (27.0-31.0); MEAN CORPUSCULAR HGB CONC 33.8 g/dL (32.0-36.0); MEAN CORPUSCULAR VOLUME 93.3 fL (80.0-94.0); MEAN PLATELET VOLUME 9.1 fL (7.4-11.4); MONOCYTES # (AUTO) 0.6 10^3/uL (0.0-1.0); MONOCYTES % (AUTO) 7.7 %; NEUTROPHILS # (AUTO) 6.9 10^3/uL (1.5-6.6); NEUTROPHILS % (AUTO) 83.6 %; PLT - PLATELET COUNT 181 10^3/uL (130-450); RED BLOOD COUNT 4.76 10^6/uL (4.70-6.10); RED CELL DISTRIBUTION WIDTH 13.1 % (12.0-15.0); WHITE BLOOD COUNT 8.2 x10^3/uL (4.8-10.8)
[2022-11-09 21:31] LABS: ALBUMIN 3.9 g/dL (3.2-5.5); ALBUMIN/GLOBULIN RATIO 1.4 (1.0-2.2); BILIRUBIN,TOTAL 0.6 mg/dL (0.2-1.0); CALCIUM 8.7 mg/dL (8.5-10.3); CREATININE 0.9 mg/dL (0.6-1.2); POTASSIUM 3.9 mmol/L (3.5-5.0); TOTAL PROTEIN 6.7 g/dL (6.7-8.2)
[2022-11-09 22:42] VITALS: BP 148/78
== END 2022-11-09 22:42 | disposition home or self-care (01) ==
LOC: ED 19:11
DX: T69.8XXA Other specified effects of reduced temperature, initial encounter (principal); X31.XXXA Exposure to excessive natural cold, initial encounter; I10 Essential (primary) hypertension; Z87.891 Personal history of nicotine dependence; Z91.14 Patient's other noncompliance with medication regimen
CPT/HCPCS: 36415; 80053; 83690; 85025; 96360; 99283

== ENCOUNTER 2023-01-23 08:11 | Outpatient (CLI) | payer MEDICARE ==
[2023-01-23 10:07] LABS: ESTIMATED AVERAGE GLUCOSE 148 mg/dL (70-100); HEMOGLOBIN A1c% 6.8 % (4.27-6.07)
== END 2023-01-23 08:12 | disposition home or self-care (01) ==
LOC: LAB 08:11
PROVIDERS: ATTEND Nurse Practitioner Family
DX: E11.9 Type 2 diabetes mellitus without complications (principal)
CPT/HCPCS: 36415; 83036

== ENCOUNTER 2023-05-02 09:12 | Outpatient (CLI) | payer MEDICARE ==
--- NOTE | 2023-05-02 17:02 | XRAY Report ---
PROCEDURE: Hip w/Pelvis 2-3V RT INDICATIONS: RIGHT HIP PAIN TECHNIQUE: AP pelvis with lateral view(s) of the right hip(s). COMPARISON: None. FINDINGS: Bones: No fractures or dislocations. No suspicious bony lesions. Degenerative changes noted in the lower lumbar spine Soft tissues: No suspicious soft tissue calcifications or masses. Prostate brachytherapy seeds and bilateral vasectomy clips noted IMPRESSION: No acute bony abnormality. Lower lumbar spine degenerative changes Reviewed by: Venkatesh Langford MD on 05/02/2023 4:01 PM AKDT Approved by: Venkatesh Langford MD on 05/02/2023 4:01 PM AKDT Station ID: [id number]
== END 2023-05-02 09:13 | disposition home or self-care (01) ==
LOC: DI 09:12
PROVIDERS: ATTEND Nurse Practitioner Family
DX: M25.551 Pain in right hip (principal); M47.816 Spondylosis without myelopathy or radiculopathy, lumbar region

== ENCOUNTER 2023-06-27 15:42 | Outpatient (CLI) | payer MEDICARE | END 2023-06-27 23:59 | disposition E | LOC: EMS 15:42 ==